=== PATIENT | female | born 1935 | race Caucasian/White ===

== ENCOUNTER → 2020-04-04 07:42 | Outpatient (CLI) | payer MEDICARE, SELFPAY ==
--- NOTE | 2020-04-04 07:42 | MR_ITS ---
PROCEDURE: MR HEAD/BRAIN WO CON CLINICAL INDICATION: parkinsonian syndrome Patient unable to walk COMPARISON: MR Cervical Spine MRI from 09/05/2017 TECHNIQUE: Routine multiplanar multi echo sequences are performed without gadolinium enhancement. FINDINGS: No midline shift, mass effect, intracranial hemorrhage, or hydrocephalus is evident. Periventricular and subcortical T2 white matter hyperintensities are present consistent with ischemic gliotic change from microvascular disease. There is mild generalized atrophy. No acute infarction. The cerebellopontine angles, cerebellum, and brainstem are unremarkable. The pituitary, optic chiasm, corpus callosum, and craniocervical junction are unremarkable. There is a bulging disc at C3-C4 causing some impingement upon the cord anteriorly with narrowing of the canal. No mastoid effusion or sinus air-fluid levels evident. IMPRESSION: Atrophy with chronic ischemic gliotic changes. No acute intracranial findings. Bulging disc at C3-C4 with some impingement upon the cord. This was present on an old MRI of the spine of 09/05/2017. Dictated by: Vicente Valenzuela MD 04/05/2020 13:58 Vicente Valenzuela MD in [place] 04/05/2020 13:58
--- NOTE | 2020-04-04 07:42 | MR_ITS ---
PROCEDURE: MR CERVICAL SPINE WO CON CLINICAL INDICATION: parkison syndrome COMPARISON: MR Cervical Spine MRI from 09/05/2017 TECHNIQUE: Standard multiplanar multiecho sequences are performed without contrast. 3-D MIP and myelographic images are also rendered and reviewed FINDINGS: There is normal alignment. The craniocervical junction has an unremarkable appearance. C2-C3: Mild concentric bulging disc. C3-C4: Bulging disc with small central disc protrusion slightly eccentric toward the right causing impingement upon the anterior aspect of the cord with mild cord flattening. This appears slightly larger compared to the previous exam with slight increased compression upon the cord. C4-C5: Mild degenerative disc disease with mild bulging disc. C5-C6: Degenerate disc disease with mild bulging disc. C6-C7: Degenerate disc disease with bulging disc and small central disc protrusion without impingement. C7-T1: Minimal anterolisthesis of C7 of 2 mm. IMPRESSION: Mild multilevel degenerative disc disease. Bulging disc at C3-C4 with small central disc protrusion slightly eccentric toward the right causing impingement upon the anterior aspect of the cord with mild cord flattening. This appears slightly larger compared to the previous exam with slight increased compression upon the cord. Degenerative disc disease C6-C7 with bulging disc and small central disc protrusion Dictated by: Vicente Valenzuela MD 04/05/2020 14:02 Vicente Valenzuela MD in [facility] 04/05/2020 14:02
== END ==
PROVIDERS: PCP Family Medicine; Visit Provider Specialist
DX: F41.9 Anxiety disorder, unspecified (principal); G20 Parkinson's disease; H54.8 Legal blindness, as defined in USA; I10 Essential (primary) hypertension; M47.12 Other spondylosis with myelopathy, cervical region; R26.9 Unspecified abnormalities of gait and mobility
CPT/HCPCS: 70551; 72141

== ENCOUNTER → 2020-05-09 15:34 | Outpatient (CLI) | payer MEDICARE, SELFPAY ==
--- NOTE | 2020-05-09 15:39 | XR_ITS ---
PROCEDURE: XR HIP RT 2-3V W/PELVIS CLINICAL INDICATION: acute hip pain, falls COMPARISON: No exams were available for comparison FINDINGS: There are mild osteoarthritic changes of the hips. No acute fracture or dislocation. Surgical clips are present in the pelvic region. IMPRESSION: Mild osteoarthritis Dictated by: Vicente Valenzuela MD 05/09/2020 16:39 Vicente Valenzuela MD in [facility] 05/09/2020 16:39
== END ==
PROVIDERS: PCP Family Medicine; Visit Provider Specialist
DX: M25.551 Pain in right hip (principal); R26.9 Unspecified abnormalities of gait and mobility
CPT/HCPCS: 73502

== ENCOUNTER 2020-05-13 17:32 | Emergency (ER) | payer MEDICARE, SELFPAY ==
[2020-05-13] VITALS (7 sets, daily range): BP systolic 141–192; BP diastolic 73–99; PULSE 102–124; RESP 18; TEMP 36.7–37.1; O2SAT 96–100; BMI 21.4
--- NOTE | 2020-05-13 17:38 | CT_ITS ---
PROCEDURE: CT HEAD/BRAIN WO CON Referring Doctor: Adams Negro Patient Age:85Y CLINICAL INDICATION: fall no LOC. Head pain. Scalp and forehead lacerations. Headache COMPARISON: MR MR CERVICAL SPINE WO CON from 04/04/2020 MR MR HEAD/BRAIN WO CON from 04/04/[address] CERVICAL SPINE WO CON from 05/13/2020 TECHNIQUE: No IV contrast. Standard axial images were obtained. All CT scans at the facility use one or more dose reduction, viz: automated exposure control, ma/kV adjustment per patient size (including targeted exams where dose is matched to indication, i.e. head), or iterative reconstruction technique. FINDINGS: No acute intracranial findings. No intracranial hemorrhage No subdural or extra-axial fluid collection is evident. No hydrocephalus.The ventricles and basal cisterns appear clear and match the degree of cerebral atrophy.. Patchy vague decreased density in the deep white matter reflecting chronic small-vessel microangiopathic ischemic gliotic changes the latter findings compatible with previous MR study from March 2020 . No mass or midline shift nor mass effect. Posterior fossa unremarkable. Soft tissue swelling, hematoma right forehead right supraorbital region with associated laceration right forehead-towards right scalp noted. Underlying skull intact. No skull fracture nor lesion. . Mastoid air cells are well developed and clear. No mastoid effusion Middle ear clear. IAC's symmetric. CP angles clear on this study Nosinus air-fluid level. Visualized portions of the paranasal sinuses unremarkable... Some type of radiopaque I suspect prosthetic feature noted at medial aspect of left lobe noted, requires correlation, axial slice 14-16. Suspect this is likely related to scleral buckle/scleral banding procedure. No swelling to suggest recent foreign body or injury to the the left orbit/left globe IMPRESSION: No acute intracranial findings . No hemorrhage. No subdural nor extra-axial collection . Chronic small vessel white-matter ischemic gliotic changes at cerebral hemispheres again noted in as was seen on recent MRI brain March 2020. Mild diffuse cerebral atrophy . Soft tissue swelling and hematoma right supraorbital region and-right forehead.-. Laceration noted right forehead and scalp . Underlying skull intact. Addendum Suspect a scleral buckle/scleral banding procedure accounting for small radiopaque feature along the medial aspect of left globe. Clinical correlation required.. Dictated by: Atilio Lacey MD 05/13/2020 18:22 Atilio Lacey MD in [place] 05/13/2020 18:22
--- NOTE | 2020-05-13 17:41 | CT_ITS ---
PROCEDURE: CT CERVICAL SPINE WO CON Referring Doctor: Adams Negro Patient Age:85Y CLINICAL INDICATION: fall scalp and forehead laceration. Head pain. Neck pain. He rib back I just did Monica washburn COMPARISON: MR MR CERVICAL SPINE WO CON from 04/04/2020 TECHNIQUE: No IV contrast Helical axial images obtained with sagittal and coronal reformats. All CT scans at the facility use one or more dose reduction, viz: automated exposure control, ma/kV adjustment per patient size (including targeted exams where dose is matched to indication, i.e. head), or iterative reconstruction technique. FINDINGS: Cervical spine CT reveals no fracture nor subluxation.. Normal prevertebral soft tissues. There are degenerative changes at the C-spine with disc space narrowing at multi levels and developing multilevel cervical spondylosis. Nonspecific straightening cervical spine observed most likely reflecting positioning although can be seen with muscle spasm related to pain, injury. Cervical cranial junction region unremarkable C2/3. Disc intact with only scant central bulge C3/4. Disc space narrowing with moderate central disc protrusion evident on CT but was better seen on recent March 2020 MRI C-spine C4/5 disc space narrowing mild uncovertebral joint hypertrophy bilaterally slightly more evident on the left. Moderate anterior marginal osteophytes C5/6. Disc space narrowing. Mild to moderate uncovertebral joint hypertrophy left more so than right. Yields mild foraminal encroachment left more so than right C6/7 degenerative disc space narrowing. Central spurring with mild central disc protrusion. This was seen on recent MR. C7/T1. Minor disc space narrowing with scant anterior positioning this over 1 mm C7 on T1 of stable since prior MR There are degenerative facet changes at multiple levels bilaterally of these are particularly evident at C7/T1 to the right and on the left at C2/3, C3/4 but also other levels on the left . Normal prevertebral soft tissues Incidental note is made of a 11 mm left thyroid nodule. Warrants ultrasound to further evaluate.. Apices of the lungs clear with minor chronic changes no acute finding. Generous jugular veins along with scattered moderate size nodes throughout the neck particularly notable anterior right cervical nodes, anterior to the right carotid and vascular bundle. These will benefit from follow-up follow-up with palpation as some nodes are upper normal in prominence IMPRESSION: Cervical spine intact with no acute fracture nor subluxation. Developing multilevel degenerative changes and cervical spondylosis.-these features were best seen on recent March MRI . Most notable central disc protrusion at C3/4 and C6/[address] also demonstrates degenerative facet changes bilaterally Nonspecific straightening cervical spine noted-most likely positional although can reflect muscle spasm related to pain or injury definite 11 mm left thyroid nodule noted. Benefit from follow-up thyroid ultrasound Scattered moderate size anterior cervical nodes most evident on the right; along with generous jugular veins noted bilateral.. Dictated by: Atilio Lacey MD 05/13/2020 18:44 Atilio Lacey MD in [place] 05/13/2020 18:44
--- NOTE | 2020-05-13 17:45 | XR_ITS ---
PROCEDURE: XR CHEST AP Referring Doctor: Adams Negro Patient Age:85Y CLINICAL HISTORY: fall with chest and pelvic pain Nonsmoker COMPARISON: CT CT CERVICAL SPINE WO CON from 05/13/2020 FINDINGS: The lungs appear well expanded and clear with nothing definitely acute. The heart is normal in size. The cardiomediastinal silhouette and pulmonary vascularity are within normal limits. No hilar or mediastinal mass or adenopathy The lungs are clear without infiltrates, suspicious nodules, or pleural effusions.. No pneumothorax-subtle skinfold along the upper left chest and left apex accounts for appearance here No acute bony abnormalities.. Posterior right 8th and 9th rib fractures most likely old healing fractures but however pain here you may want to consider rib series further exclude acute injury . Rectangular/Linear foreign body extension to the patient overlies the right upper chest as seen just inferior to the right clavicle IMPRESSION: No acute cardiopulmonary findings.. Lungs clear with nothing definitely acute Posterior right 8th and 9th rib fractures-favor old features; but if pain here currently, this may warrant a right rib series Dictated by: Atilio Lacey MD 05/13/2020 21:41 Atilio Lacey MD in [place] 05/13/2020 21:41
--- NOTE | 2020-05-13 17:45 | XR_ITS ---
PROCEDURE: XR PELVIS 1-2V Referring Doctor: Adams Negro Patient Age:85Y CLINICAL INDICATION: fall fall with pelvic pain COMPARISON: CR XR HIP RT 2-3V W/PELVIS from 05/09/2020 TECHNIQUE: XR Pelvis AP View FINDINGS: Single AP view of pelvis performed today is compared to 05/09/2020. Osseous pelvis intact with no acute fracture or acute findings. No acute findings at pelvis. Superior and inferior ramus intact. Pubis iliac bones intact. Bones well mineralized. AP view of both hips appear stable and satisfactory, with only scant degenerative changes hips-Right hip very slightly more so than left. Very subtle narrowing superior joint space right, mild hypertrophic lipping superior acetabulum bilateral.. Unimpressive minor observations , but suggest very minor degenerative change. There also appears to be subtle stable 16 mm lucent areas likely subchondral cyst with thin sclerotic margin projected over region of inferior left acetabulum, unchanged since the previous recent study.. I doubt this is of significance but there should be any progressive left hip pain this may benefit from follow-up or further investigation . SI joints sacrum unremarkable. Several vascular clips reflect postsurgical changes the pelvis again noted. IMPRESSION: Osseous pelvis intact with no acute findings.. No fracture Trace scant degenerative changes hips slightly; with borderline/mild narrowing superior joint space right hip Other observations in text: Suggestion of benign-appearing lucent area projected over inferior margin left acetabulum..-Not felt to be of significance but if pain develops at left hip would warrants follow-up Dictated by: Atilio Lacey MD 05/13/2020 20:41 Atilio Lacey MD in [place] 05/13/2020 20:41
--- NOTE | 2020-05-13 17:52 | PC.NURSE ---
pt gone to ct
--- NOTE | 2020-05-13 17:52 | HMH.EDFALL ---
ED Disposition Clinical Impression: Closed head injury Qualifiers: Encounter type: initial encounter Qualified Code(s): S09.90XA - Unspecified injury of head, initial encounter Disposition: Still a Patient Condition on Discharge: Good Additional Instructions: Lacerations to the scalp and forehead have been closed as above. Plain films reveal no acute fracture or deformity. CT of head and cervical spine read by myself without acute process as well patient remains in the emergency department while waiting for radiology to over read the scans. Patient care has been turned over to Dr. Branch for final disposition. Referrals: Provider,Referral, [Referring] - - Critical Care Critical Care Time: No Attestation: On 05/13/20, the high probability of a clinically significant, sudden or life threatening deterioration of the following system(s) required my full and direct attention, intervention and personal management. The time I documented below is in addition to time spent performing reported procedures but includes the following listed in this critical care notation. Medical Decision Making - Medical Records Medical records reviewed: Yes: I reviewed the patient's medical records. - Leo Inquiry Pt receiving controlled substance: No Vital Signs: 05/13/20 17:32 05/13/20 17:50 05/13/20 19:12 Temperature 98.7 F Temperature Source Oral Pulse Rate [Left Radial] 104 H 102 H 103 H Respiratory Rate 18 Blood Pressure [Right Arm] 170/96 H 175/95 H 192/99 H Blood Pressure Mean [Right Arm] 120 121 130 Blood Pressure Source [Right Arm] Automatic Cuff Automatic Cuff Automatic Cuff Blood Pressure Position [Right Arm] Sitting Sitting Sitting 02 Sat by Pulse Oximetry 99 100 98 Oxygen Delivery Method Room Air Room Air Room Air Orders (Tests/Meds): ORDERS Category Date Time Status Pelvis XR 1-2 views [XR pelvis 1-2V] Stat Exams 05/13/20 17:45 Taken XR chest AP Stat Exams 05/13/20 17:45 Taken - Radiology Data #1 Image(s): Chest Image Reviewed: Yes I reviewed the patient's radiology image Preliminary Findings: Normal/NAD #2 Image(s): Pelvis Image Reviewed: Yes I reviewed the patient's radiology image Preliminary Findings: Normal/NAD Fall HPI - General Chief Complaint: Fall Stated Complaint: fall Time Seen by Provider: 05/13/20 17:35 Mode of Arrival: Ambulatory Source of Information: Patient Limitations: No Limitations Description of Symptoms (Recalled from ER Triage Doc. by RN): Per EMS pt was getting up from the toilet and fell frontwards into the corner of ther wall. Pt denies any other injuries or LOC at this time. Scalp and forehead laceration noted - History of Present Illness HPI Narrative: This is 85-year-old female presents via EMS after sustaining fall with laceration to the scalp and forehead. Patient reports that she was using the restroom whenever she got up to get her walker she would come off balance and fell headfirst into the wall. Bleeding controlled prior to arrival by family members and EMS. Patient denies being on any blood thinners and she denies any current pain at the present time. She denies any loss of consciousness. No focal neurologic deficits or change in vision or hearing. Patient has no current complaints. - Related Data Home Medications Medication Instructions Recorded Confirmed amlodipine 5 mg tablet 5 mg PO DAILY tab 03/27/20 05/08/20 ascorbic acid (vitamin C) 1,000 mg 1 g PO DAILY tab 03/27/20 05/08/20 tablet eessozwe-bdv-ryimp acid 0.4 1 tab PO DAILY 03/27/20 05/08/20 mg-lycopene 300 mcg-lutein 250 mcg tablet vfsvioqp-rjsqypkqh-lzrtjnpce 3.5 drp OTIC 03/27/20 05/08/20 mg-10,000 unit/mL-1 % ear drops,susp pantoprazole 40 mg granules 40 mg PO DAILY 03/27/20 05/08/20 delayed-release for susp in packet citalopram 10 mg tablet 10 mg PO DAILY 05/08/20 05/08/20 pramipexole 0.125 mg tablet 0.125 mg PO DAILY tab
--- NOTE | 2020-05-13 19:10 | PC.NURSE ---
Pt's head and hair cleaned as well as I possibly could. Several bela and sutures placed by .
== END 2020-05-13 20:51 | disposition home or self-care (01) ==
PROVIDERS: Emergency Provider Emergency Medicine; PCP Family Medicine
DX: S01.01XA Laceration without foreign body of scalp, initial encounter (principal); S01.81XA Laceration without foreign body of other part of head, initial encounter; W18.12XA Fall from or off toilet with subsequent striking against object, initial encounter; Y92.012 Bathroom of single-family (private) house as the place of occurrence of the external cause
CPT/HCPCS: 12004; 12013; 70450; 71045; 72125; 72170; 99283

== ENCOUNTER 2022-02-18 07:41 | Emergency (ER) | payer OTHER, MEDICARE, SELFPAY ==
[2022-02-18 07:42] VITALS: BP 222/107; PULSE 97; RESP 16; TEMP 36.9; O2SAT 98; BMI 24.4
--- NOTE | 2022-02-18 07:54 | PC.NURSE ---
went in to do ekg, pt dsaughter advised pt is on hospice and they did not want anything but stitches for laceration
[2022-02-18 08:00] VITALS: BP 208/111; PULSE 82; RESP 16; O2SAT 96
--- NOTE | 2022-02-18 08:16 | HMH.EDFALL ---
Discharge Plan Disposition Patient Disposition: Hospice - Medical Facility Condition: Good Chief Complaint: Fall Prescriptions Prescriptions: No Action amlodipine 5 mg tablet 5 mg PO DAILY ipyvgwhz-vatbwjomb-BC 3.5-10,000-1 mg/mL-unit/mL-% drops,suspension OTIC pantoprazole [address] for susp in packet 40 mg PO DAILY Centrum Silver 0.4-300-250 mg-mcg-mcg tablet 1 tab PO DAILY ascorbic acid (vitamin C) 1,000 mg tablet 1 g PO DAILY citalopram 10 mg tablet 10 mg PO DAILY pramipexole 0.125 mg tablet 0.125 mg PO DAILY bimatoprost 0.01 % drops OPHTHALMIC Referrals Follow up/Referrals: Gabby Tee MD [Primary Care Provider] - See instructions Activity Restrictions/Add. Instructions Additional Instructions/Restrictions: There are 6 sutures in your forehead laceration. Keep these clean and dry and after 24 hours, you can wash normally with soap and water. For any signs of infection you may return to the emergency department for re-evaluation. Sutures need to come out in 5-7 days Clinical Impressions Clinical Impression: Closed head injury, Forehead laceration Instructions Patient Instructions: How to Prevent Falls, Closed Head Injury, DI for Laceration Repair -- Simple Print Language Print Language: Slovak Discharge ED Provider: Jeremie Cuadra HPI General Chief Complaint: Fall Stated Complaint: fall Time Seen by Provider: 02/18/22 08:16 Mode of Arrival: EMS Limitations: No Limitations Description of Symptoms (Recalled from ER Triage Doc. by RN): to ed per squad with c/o unwitnessed fall at [place] this am. pt with lac to rt side forehead. daughter at bedside states pt is a hospice pt and they only want her to have sutures. pt alert blood sugar 110 History of Present Illness HPI Narrative: Patient is an 86-year-old female from nursing facility who is under hospice care she is accompanied by her daughter. She presents via EMS due to unwitnessed fall and sustained laceration to the right side of the forehead. Per patient family wishes they do not want to pursue aggressive work-up, prefer just to have laceration repaired and return to facility. Is currently at her baseline mental status, is unaware if there was loss of consciousness, denies pain in the neck back any extremities or any other complaints at this time. She denies any nausea, vomiting, change in vision. Related Data Home Medications Medication Instructions Recorded Confirmed amlodipine 5 mg tablet 5 mg PO DAILY 03/27/20 06/29/20 ascorbic acid (vitamin C) 1,000 mg 1 g PO DAILY 03/27/20 06/29/20 tablet ovezqtdr-sck-odwgs acid 0.4 1 tab PO DAILY 03/27/20 06/29/20 mg-lycopene 300 mcg-lutein 250 mcg tablet (Centrum Silver) tagruecg-ybvypibgp-mukomdstn 3.5 drp otic (ear) 03/27/20 06/29/20 mg-10,000 unit/mL-1 % ear drops,susp pantoprazole 40 mg granules 40 mg PO DAILY 03/27/20 06/29/20 delayed-release for susp in packet citalopram 10 mg tablet 10 mg PO DAILY 05/08/20 06/29/20 pramipexole 0.125 mg tablet 0.125 mg PO DAILY 05/08/20 06/29/20 bimatoprost 0.01 % eye drops drp ophthalmic (eye) 06/29/20 06/29/20 Allergies Allergy/AdvReac Type Severity Reaction Status Date / Time voltaren Allergy Intermediate Uncoded 03/27/20 10:27 [facility] Social History Smoking Status: Never smoker alcohol intake: current substance use type: denies use current occupational status: retired Travel in the last 8 weeks: None household members: spouse housing: house ROS Obtained: Yes Systems reviewed as appropriate & no additional complaints except as documented Constitutional Constitutional: Reports system reviewed and no additional complaints, except as documented Eyes Eyes: Reports system reviewed and no additional complaints, except as documented ENT Ears, Nose, Mouth, and Throat: Reports system revie
--- NOTE | 2022-02-18 08:24 | PC.NURSE ---
at bedside suturing head lac
[2022-02-18 08:30] VITALS: BP 197/100; PULSE 81; RESP 16; O2SAT 95
--- NOTE | 2022-02-18 09:00 | PC.NURSE ---
skin tear to rt knee cleaned and dsd applied
[2022-02-18 09:01] VITALS: BP 178/86; PULSE 84; RESP 16; O2SAT 95
--- NOTE | 2022-02-18 09:01 | PC.NURSE ---
report called to [facility] called to transfer pt to [facility]
--- NOTE | 2022-02-18 09:27 | PC.NURSE ---
pt is dc going back to [facility]
--- NOTE | 2022-02-18 09:28 | PC.NURSE ---
Pt leaving via [facility] at this time in route back to [facility]
[2022-02-18 09:32] VITALS: BP 200/105; PULSE 78; RESP 16; TEMP 36.6; O2SAT 98
[2022-02-18 14:30] LABS: POC Glucose,Bedside 110 (70-110)
== END 2022-02-18 09:34 | disposition hospice, inpatient (51) ==
PROVIDERS: Emergency Provider Emergency Medicine; PCP Family Medicine
DX: S01.81XA Laceration without foreign body of other part of head, initial encounter (principal); W19.XXXA Unspecified fall, initial encounter; Y92.129 Unspecified place in nursing home as the place of occurrence of the external cause
CPT/HCPCS: 12013; 82962; 99283